=== PATIENT | female | born 1995 | race Caucasian/White ===

== ENCOUNTER 2018-09-29 16:32 | Outpatient (CLI) | payer MEDICAID ==
[~2018-09-29] VITALS: Ht 157.5 cm; Wt 81.1 kg
[2018-09-29 16:55] VITALS: Ht 157.5 cm; Wt 81.1 kg
--- NOTE | 2018-09-29 18:08 | PN ---
Triage Information Date/Time Reason for visit: Uterine contractions Weeks of Gestation 35+ /Para 3/0 Diabetes: none Hypertention: none Objective Heart Rate: 140's Contractions: None Results/Medications Results 24 hrs Laboratory Tests Test 09/29/18 17:00 Urine Color YELLOW Urine Clarity SLIGHTLY CLOUDY A Urine pH 7.0 Urine Specific [place] 1.015 Urine Ketones NEGATIVE Urine Nitrite NEGATIVE Urine Bilirubin NEGATIVE Urine Urobilinogen NEGATIVE Urine Leukocyte Esterase NEGATIVE Urine Microscopic RBC 0 Urine Microscopic WBC 0 Urine Squamous Epithelial Cells MODERATE Urine Hemoglobin NEGATIVE Urine Glucose NEGATIVE Urine Total Protein NEGATIVE Disposition: Discharge Assessment/Plan No blood in vaginal vault Cx closed BPP 03/13 precautions discussed Questions answered Follow up with provider SAMY LEE M.D. Sep 29, 2018 18:08
--- NOTE | 2018-09-29 18:10 | TRIAGE ---
OB Triage Datetime Report Generated by CPN: 09/29/2018 18:09 Datetime: 09/29/2018 18:01 Maternal Assessment Level of Consciousness: Fully Conscious DTR's/Clonus: DTRs 1+ Headache: Denies Blurred Vision: No Respiratory Effort: Unlabored Breath Sounds, Left: Clear and Equal Breath Sounds, Right: Clear and Equal Nausea/Vomiting: Denies RUQ Epigastric Pain: Denies Facial Edema: None Monitor Mode: External Resting Tone [place]: Relaxed Heart Rate FHR Baseline Rate: 140 Monitor Mode: External US Variability: Moderate 6-25 bpm Accelerations: 15X15 Decelerations: None Category: Category I Pain Assessment Pain Scale: 0 Pain Presence: None/Denies Pain Type: N/A Pain Goal: 3 Vaginal Exam Membrane Status: Intact Datetime: 09/29/2018 17:06 Maternal Assessment Level of Consciousness: Fully Conscious DTR's/Clonus: DTRs 1+ Headache: Denies Blurred Vision: No Respiratory Effort: Unlabored Breath Sounds, Left: Clear and Equal Breath Sounds, Right: Clear and Equal Nausea/Vomiting: Denies RUQ Epigastric Pain: Denies Facial Edema: None Labor Evaluation Frequency: NONE Monitor Mode: External Resting Tone [place]: Relaxed Heart Rate FHR Baseline Rate: 140 Monitor Mode: External US Variability: Moderate 6-25 bpm Accelerations: 15X15 Decelerations: None Category: Category I Pain Assessment Pain Scale: 0 Pain Presence: None/Denies Pain Type: N/A Pain Goal: 0 Vaginal Exam Membrane Status: Intact Datetime: 09/29/2018 16:26 Time of Arrival: 09/29/2018 16:26 EGA: 34.2 Arrived By: Ambulatory Arrived From: Home Chief Complaint: PT CAME IN C/O SPOTTING AFTER HAVING SEX 2 DAYS AGO AND STATES THAT SHE STOP SPOTT ING YESTREDAY BUT SHE IS CONCERN ABOUT HER BABY BECAUSE SHE HAD 2 PREVIOUS MISCARRAGES. Movement: Present Contractions: Denies/Absent Additional Patient Complaints: NONE Time Provider Notified: 09/29/2018 16:40 Provider Notified: MELI/ROSA Initial Plan: [facility] LOCATION, BPP AND EFW
== END 2018-09-29 18:10 | disposition home or self-care (01) ==
LOC: OBT 16:32 → L-D 16:34 → OBT 18:10
PROVIDERS: ATTEND Obstetrics & Gynecology
DX: O62.9 Abnormality of forces of labor, unspecified (principal); Z3A.35 35 weeks gestation of pregnancy
CPT/HCPCS: 76815; 76818; 81001; Z7500; 81003; G0463

== ENCOUNTER 2018-10-21 19:42 | Inpatient (IN) | payer MEDICAID, OTHER ==
[~2018-10-21] VITALS: Ht 152.4 cm; Wt 54.0 kg
[2018-10-21 21:17] VITALS: Ht 152.4 cm; Wt 54.0 kg
[2018-10-21] MEDS ORDERED: OXYTOCIN 30 UNITS/LR 500 ML IV SCH ×2 (21:30)
[2018-10-21] MEDS ORDERED: LIDOCAINE 1% (MPF) 30 ML INJ INJ PRN (21:30)
[2018-10-21] MEDS ORDERED: BUTORPHANOL 2 MG INJ IV PRN (21:30)
[2018-10-21] MEDS ORDERED: MISOPROSTOL 200 MCG TAB PR PRN (21:30)
[2018-10-21] MEDS ORDERED: CARBOPROST 250 MCG INJ IM PRN (21:30)
[2018-10-21] MEDS ORDERED: OXYTOCIN 30 UNITS/LR 500 ML IV PRN (21:30)
[2018-10-21] MEDS ORDERED: IBUPROFEN 600 MG TAB PO PRN (21:30)
[2018-10-21] MEDS ORDERED: METHYLERGONOVINE 0.2 MG INJ IM PRN (21:30)
[2018-10-22] MEDS: LACTATED RINGER'S 1,000 ML IV SCH ×5 (00:01→18:32)
[2018-10-22 00:02] VITALS: BP 114/66; PULSE 71
[2018-10-22] MEDS ORDERED: OXYTOCIN 30 UNITS/LR 500 ML IV SCH (03:30)
[2018-10-22] MEDS ORDERED: AMPICILLIN 2 GM/NS (PMX) 100 ML IV ONE (03:30)
[2018-10-22] MEDS: AMPICILLIN 1 GM/NS (PMX) 50 ML IV SCH ×5 (07:17→23:56)
[2018-10-22] MEDS: OXYTOCIN 30 UNITS/LR 500 ML IV SCH (07:19)
--- NOTE | 2018-10-22 10:29 | HP ---
Date/Time of Note Date/Time of Note DATE: 10/22/18 TIME: 10:28 OB - History Hx of Present : 1 Para: 0 Care: Good Care Ultrasounds: Normal mid trimester US Obstetrical Complications: None Medical Complications: None Past Family/Social History * Past Medical, Surgical, Family and Obstetric Histories reviewed from chart. OB Admission Exam Vital Signs Vital Signs Vital Signs Date Temp Pulse Resp B/P (MAP) Pulse Ox O2 O2 Flow FiO2 Time Delivery Rate 10/22/18 98.3 71 114/66 Room Air 00:02 (82) Physical Exam HEENT: WNL Heart: Rhythm Normal Lungs: Clear, Equal Abdomen: WNL Extremities: Normal Reflexes: Normal Cervical Dilatation: 1cm Effacement: 75% Station: -1 Membranes: Ruptured Amniotic Fluid: Clear Heart Rate: 130's Accelerations: Accelerations Present Decelerations: No Decelerations Varibility: Moderate Contractions on Admission: 6-10 Minutes Apart Intensity: Moderate Last 72 hours Lab Results CBC & BMP 10/21/18 23:45 OB Assessment/Plan Reason for admission: active labor, rupture of membranes Plan: Expectant Management MIQUEL GARRISON MD October 22, 2018 10:29
--- NOTE | 2018-10-22 16:44 | PREAC ---
Date/Time of Note Date/Time of Note DATE: 10/22/18 TIME: 16:43 Anesthesia Eval and Record Evaluation Time Pre-Procedure Interview DATE: 10/22/18 TIME: 16:43 Age 23 Sex female NPO: 8 hrs Preoperative diagnosis labor pain Planned procedure labor epidural Past Medical History Past Medical History: None Surgery & Anesthesia Issues No known issue Meds Anticoagulation: No Beta Mark within 24 hr: No Reason Beta Mark not given: Pt. not on B-Mark No Active Prescriptions or Reported Meds Current Medications Lactated Ringer's 1,000 ml @ 125 mls/hr Q8H IV Last administered on 10/22/18at 16:19; Admin Dose 125 MLS/HR; Start 10/21/18 at 21:13 Butorphanol Tartrate (Stadol) 2 mg Q2H PRN IV .PAIN SCALE 6-10; Start 10/21/18 at 21:30 Lidocaine (Xylocaine 1% (Mpf)) 30 ml ONCE PRN INJ .EPISIOTOMY; Start 10/21/18 at 21:30 Oxytocin/Lactated Ringer's 500 ml @ 500 mls/hr ONCE POST IV ; Start 10/21/18 at 21:30 Oxytocin/Lactated Ringer's 500 ml @ 125 mls/hr POST IV ; Start 10/21/18 at 21:30 Ibuprofen (Motrin) 600 mg ONCE PRN PO .PAIN 1-5; Start 10/21/18 at 21:30 Oxytocin/Lactated Ringer's 500 ml @ 0 mls/hr ONCE PRN IV .VAGINAL BLEEDING; S tart 10/21/18 at 21:30 Methylergonovine Maleate (Methergine) 0.2 mg ONCE PRN IM .VAGINAL BLEEDING; S tart 10/21/18 at 21:30 Carboprost Tromethamine (Hemabate) 250 mcg ONCE PRN IM .VAGINAL BLEEDING; Start 10/21/18 at 21:30 Misoprostol (Cytotec) 1,000 mcg ONCE PRN LA .VAGINAL BLEEDING; Start 10/21/18 at 21:30 Oxytocin/Lactated Ringer's 500 ml @ 0 mls/hr FOR AUGMENTATION IV Last administered on 10/22/18at 07:19; Admin Dose 1 MLS/HR; Start 10/21/18 at 22:00 Ampicillin 50 ml @ 100 mls/hr Q4H IV Last administered on 10/22/18at 15:31; Admin Dose 100 MLS/HR; Start 10/22/18 at 07:30 Oxytocin/Lactated Ringer's 500 ml @ 0 mls/hr FOR AUGMENTATION IV ; Start 10/22/18 at 03:30 Meds reviewed: Yes Allergies Coded Allergies: No Known Allergy (Unverified , 10/21/18) Allergies Reviewed: Yes Labs/Studies Labs Reviewed: Reviewed by anesthesiologist Result Diagram: 10/21/18 2345 Laboratory Tests 10/21/18 23:45 Blood Bank Test 10/21/18 23:45 Antibody Screen NEGATIVE Blood Type O POSITIVE Rh Immune Globulin Candidate NO test: Positive Pre-procedure Exam Last vitals Vital Signs Date Temp Pulse Resp B/P (MAP) Pulse Ox O2 O2 Flow FiO2 Time Delivery Rate 10/22/18 98.3 71 114/66 Room Air 00:02 (82) Airway: Adequate mouth opening, Adequate thyromental dist Mallampati: Mallampati III Teeth: Normal Lung: Normal Heart: Normal ASA Physical Status ASA physical status: 2 Emergency: None Planned Anesthetic Neuraxial: Epidural Planned Pain Management Epidural, Parenteral pain med, Other neuraxial med Pre-operative Attestations Prior to commencing anesthesia and surgery, the patient was re-evaluated, there was verification of: *The patient's identity *The results of appropriate recent lab work and preoperative vital signs *The above evaluation not changing prior to induction *Anesthetic plan, risk benefits, alternative and complications discussed with patient/family; questions answered; patient/family understands, accepts and wishes to proceed. AMRIK SEGURA MD October 22, 2018 16:44
[2018-10-22] MEDS ORDERED: ZOLPIDEM 5 MG TAB PO PRN (17:00)
[2018-10-22] MEDS ORDERED: DIPHENHYDRAMINE 50 MG INJ IV PRN (17:00)
[2018-10-22] MEDS ORDERED: KETOROLAC 30 MG INJ IV PRN (17:00)
[2018-10-22] MEDS ORDERED: NALOXONE (0.4 MG/ML) INJ IV PRN (17:00)
[2018-10-22] MEDS ORDERED: HYDROmorphONE 0.5 MG/0.5 ML SYG IV PRN ×2 (17:00)
[2018-10-22] MEDS: FENTAnyl 2MCG/ML-ROPIV 0.2% 100 ML BAG EPI SCH ×2 (19:40→23:56)
[2018-10-22] MEDS: ONDANSETRON 4 MG INJ IV PRN (19:52)
[2018-10-22] MEDS ORDERED: AL HYDROX/MG HYDROX/SIMETH 30 ML CUP PO PRN (20:00)
[2018-10-23] MEDS: LACTATED RINGER'S 1,000 ML IV SCH ×3 (03:17→21:55)
[2018-10-23] MEDS: OXYTOCIN 30 UNITS/LR 500 ML IV SCH (03:36)
[2018-10-23] MEDS: AMPICILLIN 1 GM/NS (PMX) 50 ML IV SCH ×4 (03:44→15:27)
[2018-10-23] MEDS: FENTAnyl 2MCG/ML-ROPIV 0.2% 100 ML BAG EPI SCH ×2 (07:34→14:38)
[2018-10-23] MEDS: ONDANSETRON 4 MG INJ IV PRN (14:32)
[2018-10-23] MEDS ORDERED: FAMOTIDINE 20 MG INJ IV ONE (17:00)
--- NOTE | 2018-10-23 17:33 | LDN ---
Date/Time of Note Date/Time of Note DATE: 10/23/18 TIME: 17:31 Delivery Summary of normal female Weeks of Gestation 38w6d Placenta Delivered: Spontaneously, Intact & Complete Meconium: none Episiotomy: Yes Indication for episiotomy expected laceration Perineal laceration: 0 Laceration repair: 00 ch gut Anesthesia type: Epidural Estimated blood loss: 100 Sponge & Needle done & correct: Yes All needle counts correct: Yes Any foreign bodies felt in the: No Infant Delivery Information Sex Sex: female Apgars 1 Minute: 9 5 Minute: 9 Suctioning Nose & mouth suctioned at richard: Yes Delee suction performed: Yes Umbilical Cord Umbilical cord with: 3 Vessels Cord presentations: no nuchal cord Cord Blood was obtained: Yes Mother & Baby Disposition Disposition Mom & Baby to Maternity; Good: Yes Mom transferred to: Other Baby to NICU: No () MISA SCANLON MD October 23, 2018 17:33
[2018-10-23] MEDS ORDERED: IBUPROFEN 600 MG TAB PO PRN (18:30)
[2018-10-23 19:00] VITALS: BP 123/77; PULSE 71; RESP 19
[2018-10-23] MEDS ORDERED: OXYCODONE/ASPIRIN (4.88/325) TAB PO PRN ×2 (20:30)
[2018-10-23] MEDS ORDERED: MISOPROSTOL 200 MCG TAB PR PRN (20:30)
[2018-10-23] MEDS: IBUPROFEN 600 MG TAB PO SCH ×2 (20:30→23:34)
[2018-10-23] MEDS ORDERED: ZOLPIDEM 5 MG TAB PO PRN (20:30)
[2018-10-23] MEDS ORDERED: CARBOPROST 250 MCG INJ IM PRN (20:30)
[2018-10-23] MEDS ORDERED: OXYTOCIN 30 UNITS/LR 500 ML IV PRN (20:30)
[2018-10-23] MEDS ORDERED: LANOLIN HPA 1 PKT TOP PRN (20:30)
[2018-10-23] MEDS ORDERED: BENZOCAINE 20% 56 ML SPRAY TOP PRN (20:30)
[2018-10-23] MEDS ORDERED: METHYLERGONOVINE 0.2 MG INJ IM PRN (20:30)
[2018-10-23] MEDS ORDERED: WITCH HAZEL/GLYCERIN PAD PR PRN (20:30)
[2018-10-23] MEDS: SENNA/DOCUSATE NA (8.6MG/50MG) TAB PO SCH (21:06)
[2018-10-24] VITALS: BP 106/60; PULSE 69; RESP 18
[2018-10-24 03:59] VITALS: BP 100/59; PULSE 81; RESP 19
[2018-10-24] MEDS: IBUPROFEN 600 MG TAB PO SCH ×3 (05:46→18:39)
[2018-10-24] MEDS: LACTATED RINGER'S 1,000 ML IV SCH (06:00)
[2018-10-24 08:00] VITALS: BP 112/58; PULSE 73; RESP 18
[2018-10-24] MEDS: SENNA/DOCUSATE NA (8.6MG/50MG) TAB PO SCH ×2 (09:57→20:48)
--- NOTE | 2018-10-24 11:19 | DS ---
Date/Time of Note Date/Time of Note DATE: 10/24/18 TIME: 11:18 Discharge Summary Admission/Discharge Info Admit Date/Time October 21, 2018 at 20:50 Discharge Date/Time Discharge Diagnosis term Patient Condition: Stable Hospital Course unremarkable Home Meds No Active Prescriptions or Reported Meds Primary Care Provider Care Physician No Primary Pending Labs Laboratory Tests Test 10/24/18 04:33 White Blood Count 15.9 10^3/ul (4.8-10.8) Red Blood Count 2.88 10^6/ul (4.20-5.40) Hemoglobin 8.6 g/dl (12.0-16.0) Hematocrit 25.3 % (37.0-47.0) Mean Corpuscular Volume 87.8 fl (82.0-101.0) Mean Corpuscular Hemoglobin 29.9 pg (29.0-33.0) Mean Corpuscular Hemoglobin Concent 34.0 g/dl (32.0-37.0) Red Cell Distribution Width 13.5 % (11.5-14.5) Platelet Count 234 10^3/UL (140-415) Mean Platelet Volume 10.6 fl (7.4-10.4) Immature Granulocytes % 0.800 % (0.001-0.429) Neutrophils % 74.0 % (39.0-77.0) Lymphocytes % 17.3 % (15.0-51.0) Monocytes % 7.3 % (0.0-11.0) Eosinophils % 0.4 % (0.0-7.0) Basophils % 0.2 % (0.0-2.0) Nucleated Red Blood Cells % 0.0 /100WBC (0.0-0.0) Immature Granulocytes # 0.120 10^3/ul (0.0-0.031) Neutrophils # 11.8 10^3/ul (1.6-7.5) Lymphocytes # 2.7 10^3/ul (0.8-2.9) Monocytes # 1.2 10^3/ul (0.3-0.9) Eosinophils # 0.1 10^3/ul (0.0-0.5) Basophils # 0.0 10^3/ul (0.0-0.1) Nucleated Red Blood Cells # 0.0 10^3/ul (0.0-0.0) MIQUEL GARRISON MD October 24, 2018 11:19
[2018-10-24 12:46] VITALS: BP 108/74; PULSE 80; RESP 19
[2018-10-24 16:00] VITALS: BP 98/56; PULSE 60; RESP 18
--- NOTE | 2018-10-24 19:13 | DELSUM ---
Delivery Summary A-C Datetime Report Generated by CPN: 10/24/2018 19:12 DELIVERY PERSONNEL Intelligent Systems Engineer: Nathan Banegasa MATERNAL INFORMATION Delivery Anesthesia: Epidural Medications in Delivery: 30 UNITS PITOCIN Delivery QBL (ml): 100 Placenta Cultured: No Maternal Complications: Other Other Maternal Complications: PROLONGED SROM LABOR SUMMARY EDC: 10/31/2018 00:00 No. Babies in Womb: 1 Attempted: No Labor Anesthesia: Epidural LABOR INFORMATION Reason for Induction: Not Applicable Onset of Labor: 10/23/2018 05:57 Complete Dilatation: 10/23/2018 14:59 Oxytocin: Augmentation Group B Beta Strep: Negative Antibiotics # of Doses: 10 Antibiotics Time of Last Dose: 10/23/2018 15:27 Steroids Given: None Reason Steroids Not Administered: Not Applicable MEMBRANES Membranes Rupture Method: Artificial Rupture of Membranes: 10/21/2018 17:30 Length of Rupture (hr): 47.32 Amniotic Fluid Color: Clear Amniotic Fluid Amount: Moderate Amniotic Fluid Odor: Normal STAGES OF LABOR Stage 1 hr: 9 Stage 1 min: 2 Stage 2 hr: 1 Stage 2 min: 50 Stage 3 hr: 0 Stage 3 min: 10 Total Time in Labor hr: 11 Total Time in Labor min: 2 VAGINAL DELIVERY Episiotomy: Right Mediolateral Laceration Extension: N/A Laceration Type: None Laceration Repair: Yes Initial Vag Sponge Count: 10 Final Vag Sponge Count: 10 Initial Vag Sharps Count: 1+1 Final Vag Sharps Count: 2 Sponge Count Correct: Yes; Vaginal Sweep Performed Sharps Count Correct: Yes BABY A INFORMATION Delivery Date/Time: 10/23/2018 16:49 Method of Delivery: Vaginal Born in Route : No : N/A Forceps: N/A Vacuum Extraction: N/A Shoulder Dystocia : No SHOULDER DYSTOCIA BABY A Delivery Date/Time: 10/23/2018 16:49 PRESENTATION/POSITION BABY A Presentation: Cephalic Cephalic Presentation: Vertex Breech Presentation: N/A PLACENTA INFORMATION BABY A Placenta Delivery Time : 10/23/2018 16:59 Placenta Method of Delivery: Spontaneous Placenta Status: Delivered SCORES BABY A Heart Rate 1 min: >100 bpm Resp Effort 1 min: Good Cry Reflex Irritability 1 min: Cough/Sneeze/Pulls Away Muscle Tone 1 min: Active Motion Color 1 min: Body [place], Extremit Blue Resuscitation Effort 1 min: Tactile Stimulation SCORE 1 MIN: 9 Heart Rate 5 min: >100 bpm Resp Effort 5 min: Good Cry Reflex Irritability 5 min: Cough/Sneeze/Pulls Away Muscle Tone 5 min: Active Motion Color 5 min: Body [place], Extremit Blue Resuscitation Effort 5 min: Tactile Stimulation SCORE 5 MIN: 9 INFANT INFORMATION BABY A Gestational Age at Delivery: 38.6 Gestational Status: Early Term- 37- 38.6 Weeks Outcome : Liveborn Infant Condition : Stable Infant Sex: Female IDENTIFICATION/MEDS BABY A ID Band Number: [id number] ID Band Location: Right Leg; Left Arm Sensor Applied: Yes Sensor Number: [id number] Sensor Location : Cord Clamp Vitamin K Given : Not Given Erythromycin Given: Not Given WEIGHT/LENGTH BABY A Infant Birthweight (gm): 3405 Infant Weight (lb): 7 Weight (oz): 8 Length (in): 19.50 Infant Length (cm): 49.53 CORD INFORMATION BABY A No. Cord Vessels: 3 Nuchal Cord : N/A Cord Blood Taken: Yes Suction: Mouth; Nose ASSESSMENT BABY A Complications: Multiple Variable Decels Physical Findings at Delivery: Caput Succedaneum Infant Respirations: Appears Normal Field Support Rep/ALS Called : No Infant Care By: CHASE Sagastume Transferred To: Remains with Mother
[2018-10-24 19:30] VITALS: BP 99/60; PULSE 59; RESP 19
[2018-10-24] MEDS ORDERED: LACTATED RINGER'S 1,000 ML IV SCH (21:30)
[2018-10-25] MEDS: IBUPROFEN 600 MG TAB PO SCH ×3 (00:07→11:56)
[2018-10-25 04:00] VITALS: BP 100/59; PULSE 61; RESP 18
[2018-10-25 08:30] VITALS: BP 105/60; RESP 20
[2018-10-25] MEDS ORDERED: DIPHTH/TET/ACEL PERTUSS (ADULT) 0.5 ML VIAL IM* ONE (09:00)
[2018-10-25] MEDS: SENNA/DOCUSATE NA (8.6MG/50MG) TAB PO SCH (09:32)
== END 2018-10-25 15:06 | disposition home or self-care (01) | DRG 807 ==
LOC: OBT 19:42 → L-D 19:43 → OBT 20:50 → MS1 10-23 18:45
PROVIDERS: ADMIT Obstetrics & Gynecology; ATTEND Obstetrics & Gynecology
PROC: 10E0XZZ Delivery of Products of Conception, External Approach (ICD-10-PCS; principal; 2018-10-23)
PROC: 0W8NXZZ Division of Female Perineum, External Approach (ICD-10-PCS; 2018-10-23)
DX: O80 Encounter for full-term uncomplicated delivery (principal); Z37.0 Single live birth; Z3A.38 38 weeks gestation of pregnancy
CPT/HCPCS: 62322; 76815; 85025; 85610; 85730; 86592; 86850; 86900; 86901; 87340; 90715; G0463; J0290; J1885; J2405; J2590; J3010; J7120

== ENCOUNTER 2019-01-04 11:39 | Emergency (ER) | payer OTHER ==
[~2019-01-04] VITALS: Ht 154.9 cm; Wt 72.8 kg
[~2019-01-04 11:39] MED LIST: CEPH-443 PO; ONDA4TAB14 PO
[2019-01-04] MEDS ORDERED: ONDANSETRON 4 MG INJ IV STA ×2 (11:44→13:50)
[2019-01-04] MEDS ORDERED: morphine 4 MG/ML VIAL IV STA (11:44)
[2019-01-04] MEDS ORDERED: SODIUM CHLORIDE 0.9% 1L BAG IV* STA (11:44)
[2019-01-04] MEDS ORDERED: PIPER-TAZO 3.375 GM IV (PMX) 100 ML IVPB STA (11:44)
[2019-01-04] MEDS ORDERED: ACETAMINOPHEN 325 MG TAB PO STA (11:44)
[2019-01-04 11:45] VITALS: Ht 154.9 cm; Wt 72.8 kg
--- NOTE | 2019-01-04 12:52 | ERD ---
ER Documentation Chief Complaint Chief Complaint ap w/vomitting & diarrhea since last night, vag delivery 2mnths ago HPI This is a very pleasant 23-year-old female with no past surgical history that presents to the emergency department complaining of a sudden onset of abdominal cramping that occurred 12 hours prior to arrival. The patient stated she had gone for dinner and ate a large meal at 11 PM. At 12:30 AM she drank a glass of cold water and suddenly felt a severe sharp cramping sensation in her abdomen followed by multiple episodes of loose watery stools. She stated throughout the night she continued to have multiple episodes of nonbloody nonbilious emesis and the abdominal pain. The pain started to become more intense with a sharp shooting pain that became most prominent around her bellybutton and began to radiate to the right lower quadrant. The patient is currently breast-feeding as she is status post normal spontaneous vaginal delivery 2 months prior to arrival. She states she has had a tactile fever with shaking and chills. No antipyretics were taken prior to arrival. She went her primary care physician's office immediately sent to the emergency department to be further evaluated. ROS All systems reviewed and are negative except as per history of present illness. Medications Home Meds Active Scripts Ondansetron (Ondansetron Odt) 4 Mg Tab.rapdis, 4 MG PO Q6H PRN for NAUSEA AND/OR VOMITING, #10 TAB Prov:CHRISTINA MUNOZ MD 01/04/19 Cephalexin* (Keflex*) 500 Mg Capsule, 500 MG PO QID for 7 Days, CAP Prov:CHRISTINA MUNOZ MD 01/04/19 Allergies Allergies: Coded Allergies: No Known Allergy (Unverified , 01/04/19) PMhx/Soc Medical and Surgical Hx: pt denies Medical Hx, pt denies Surgical Hx Hx Alcohol Use: No Hx Substance Use: No Hx Tobacco Use: No Smoking Status: Never smoker Physical Exam Vitals Vital Signs Date Temp Pulse Resp B/P (MAP) Pulse Ox O2 O2 Flow FiO2 Time Delivery Rate 01/04/19 Nasal 2 12:13 Cannula 01/04/19 101.3 112 20 103/58 99 11:45 (73) Physical Exam Constitutional:Well-developed. Well-nourished. HEENT:Normocephalic. Atraumatic.Pupils were equal round reactive to light. Dry mucous membranes.No tonsillar exudates. Neck: No nuchal rigidity. No lymphadenopathy. No posterior cervical spine tenderness or step-offs. Respiratory: Not using accessory muscles of respiration.Lungs were clear to auscultation bilaterally. No rhonchi. No rales. No wheezing. Cardiovascular: Regular rate regular rhythm.No murmurs. No rubs were appreciated.S1, S2 normal. Distal pulses are palpable 2+ bilaterally. GI: Abdomen was soft. Periumbilical tenderness and tenderness in the right lower quadrant. Psoas sign negative obturator sign negative. Tenderness was over McBurney's point. Non Distended. No pulsatile abdominal masses or bruits. No rebound. No guarding. Bowel sounds were present and normal. Muscle skeletal: Full range of motion of both the upper and lower extremities bilaterally.Normal muscle tone.No assymetrical calf tenderness or swelling. Skin: No petechia, no purpura. No lesions on the palms or the soles of the feet. No maculopapular rash. NEURO: Patient was alert, awake, orientated x3.No facial droop. Gait observed and normal with no ataxia.Speech had regular rate and rhythm. No focal neurological deficits. Result Diagram: 01/04/19 1155 01/04/19 1155 Results 24 hrs Laboratory Tests Test 01/04/19 11:55 01/04/19 11:56 White Blood Count 13.2 10^3/ul Red Blood Count 4.37 10^6/ul Hemoglobin 12.0 g/dl Hematocrit 36.4 % Mean Corpuscular Volume 83.3 fl Mean Corpuscular Hemoglobin 27.5 pg Mean Corpuscular Hemoglobin Concent 33.0 g/dl Red Cell Distribution Width 16.7 % Platelet Count 233 10^3/UL Mean Platelet Volume 10.2 fl Immature Granulocytes % 0.800 % Neutrophils % 91.3 % Lymphocytes % 4.2 % Monocytes % 3.4 % Eosinophils % 0.1 % Basophils % 0.2 % Nucleated Red Blood Cells % 0.0 /100WBC Immature Granulocytes # 0.110 10^3/ul Neutrophils # 12.1 10^3/ul Lymphocytes # 0.6 10^3/ul Monocytes # 0.5 10^3/ul Eosinophils # 0.0 10^3/ul Basophils # 0.0 10^3/ul Nucleated Red Blood Cells # 0.0 10^3/ul Prothrombin Time 12.0 Sec Prothrombin Time Ratio 0.9 INR International Normalized Ratio 0.88 Activated Partial Thromboplast Time 25.8 Sec Sodium Level 140 mmol/L Potassium Level 3.6 mmol/L Chloride Level 106 mmol/L Carbon Dioxide Level 22 mmol/L Anion Gap 12 Blood Urea Nitrogen 14 mg/dl Creatinine 0.59 mg/dl Est Glomerular Filtrat Rate mL/min > 60 mL/min Glucose Level 102 mg/dl Calcium Level 9.6 mg/dl Total Bilirubin 1.3 mg/dl Direct Bilirubin 0.00 mg/dl Indirect Bilirubin 1.3 mg/dl Aspartate Amino Transf (AST/SGOT) 21 IU/L Alanine Aminotransferase (ALT/SGPT) 20 IU/L Alkaline Phosphatase 115 IU/L Troponin I < 0.012 ng/ml Total Protein 7.2 g/dl Albumin 4.6 g/dl Globulin 2.60 g/dl Albumin/Globulin Ratio 1.76 Amylase Level 97 U/L Lipase 88 U/L Serum HCG, Qualitative NEGATIVE POC Venous Lactate 1.0 mmol/L Current Medications Medications Dose Sig/Haylee Start Time Status Last (Trade) Ordered Route PRN Stop Time Admin Dose Reason Admin Sodium 2,400 ml BOLUS OVER 2 01/04/19 DC 01/04/19 Chloride HOURS STAT 11:44 01/04/19 12:17 (NS) IV* 11:47 1,000 mg ONCE STAT 01/04/19 DC 01/04/19 Acetaminophen PO 11:44 01/04/19 12:16 (Tylenol 11:47 Tab) Morphine 4 mg ONCE STAT 01/04/19 DC 01/04/19 Sulfate IV 11:44 01/04/19 12:14 (morphine) 11:47 Ondansetron 4 mg ONCE STAT 01/04/19 DC 01/04/19 HCl (Zofran IV 11:44 01/04/19 12:15 Inj) 11:47 Piperacillin 100 ml @ ONCE STAT 01/04/19 DC 01/04/19 Sod/ 200 mls/hr IVPB 11:44 01/04/19 12:15 Tazobactam 12:13 Sod Iohexol 150 ml STK-MED 01/04/19 DC (Omnipaque ONCE .ROUTE 12:55 01/04/19 300mg/ ml) 12:56 Sodium 100 ml @ ud STK-MED 01/04/19 DC Chloride ONCE .ROUTE 12:55 01/04/19 12:56 Procedures/MDM This patient presented to the emergency department with abdominal pain and was seen and evaluated by myself. My differential diagnosis included but was not limited to abdominal aortic aneurysm, appendicitis, pancreatitis, perforated peptic ulcer, perforated viscus, Boerhaave's syndrome or visceral pain such as diverticulitis, DKA, esophagitis, hepatitis or bowel obstruction. The patient was placed on a engine monitor, continuous pulse oximetry, and IV access was established by nursing staff. The patient was immediately given IV fluids intravenous morphine and Zofran. The patient was febrile and did meet Sirs criteria. Code sepsis was called but lactic acid was normal and therefore was subsequently canceled. The patient did receive however 30 cc/kg bolus of normal saline to treat her clinical dehydration. The patient also was given IV Zosyn after blood cultures were obtained for suspected intra-abdominal i nfection. The patient had leukocytosis with white count of 13.2 and a left shift. No severe electrolyte abnormalities. I obtained a 12-lead EKG tracing to rule out for atypical myocardial infarction or pericarditis. 12 Lead EKG tracing ordered and reviewed by myself showed: Normal sinus rhythm of 97 bpm and no arrhythmia. WA interval normal. QRS duration normal. No ST segment elevation No ST segment depression. No changes consistent with acute ischemia. Due to the patient's localization of pain I did feel is necessary to obtain a CT scan of the abdomen to rule out for acute appendicitis. This was reviewed by the radiologist myself and indicated the following: No evidence of appendicitis. I did indicate to the patient that I felt her symptoms could be result of a viral etiology. The patient had eaten shrimp calamari and other seafood that could have exacerbated her symptoms. The patient was now able to tolerate oral intake. She felt comfortable being discharged home. The patient did have a low-grade fever. Her urinalysis showed no evidence of urinary tract infection. Again I felt this was likely a result of a viral etiology. The patient was discharged home in fair condition. They were instructed to return to the emergency department at any time if there was any worsening of their condition. The patient stated they would follow up with their PCP in the next 24-48 hours to initiate a suitable medication regimen under the care of their PCP as well as to allow their PCP to monitor any drug reactions. The patient was discharged home with prescriptions after they gave informed consent to the new medication. They were also fully informed by myself on the adverse effects and adverse drug interactions in order to provide adequate safeguards to prevent possible adverse reactions to medications. Departure Diagnosis: Primary Impression: Nausea and vomiting Additional Impression: Diarrhea Condition: CHRISTINA Davenport MD Jan 04, 2019 12:52
[2019-01-04] MEDS ORDERED: SOD CHLORIDE 0.9% 100 ML ONE (12:55)
[2019-01-04] MEDS ORDERED: IOHEXOL 300MG/ML 150 ML BTL ONE (12:55)
[2019-01-04] MEDS ORDERED: KETOROLAC 30 MG INJ IV STA (13:50)
[2019-01-04] MEDS ORDERED: DICYCLOMINE 10 MG CAP PO ONE (14:00)
[2019-01-04 14:49] VITALS: BP 113/65; PULSE 65; RESP 17
== END 2019-01-04 14:50 | disposition home or self-care (01) ==
LOC: E/R 11:39
DX: R11.2 Nausea with vomiting, unspecified (principal); R19.7 Diarrhea, unspecified
CPT/HCPCS: 36415; 71045; 74177; 80053; 82150; 83605; 83690; 84484; 84703; 85025; 85610; 85730; 87040; 93005; 96365; 96375; 96376; J1885; J2270; J2405; J2543; J7030; Q9967; Z7502; Z7610